=== PATIENT | female | born 1995 | race Caucasian/White ===

== ENCOUNTER 2024-06-24 12:39 | Emergency (ER) | payer BC, MEDICAID ==
[~2024-06-24] VITALS: Ht 167.6 cm; Wt 102.7 kg
[~2024-06-24 12:39] MED LIST: ONDA-243 PO
[2024-06-24 13:02] LABS: BILIRUBIN,URINE NEGATIVE (Neg); CLARITY,URINE CLOUDY (Clear); COLOR,URINE YELLOW (Yellow); GLUCOSE, URINE NEGATIVE (Neg); KETONES,URINE NEGATIVE (Neg); LEUKOCYTE ESTERASE ,URINE NEGATIVE (Neg); NITRITES, URINE NEGATIVE (Neg); OCCULT BLOOD,URINE NEGATIVE (Neg); PH,URINE 7.5 (4.8-8.0); PROTEIN,URINE NEGATIVE (Neg); URINE HCG NEGATIVE (NEG); UROBILINOGEN,URINE 0.2 E.U/dL (0.2-1.0)
[2024-06-24 13:10] LABS: UA COLLECTION TYPE CLN CATCH MIDSTREAM
[2024-06-24 13:14] LABS: RBC,URINE NONE SEEN /HPF (0-2); WBC,URINE 0-4 /HPF (0-4)
[2024-06-24 13:15] LABS: BACTERIA,URINE FEW /HPF (Neg); MUCUS STRANDS NONE SEEN /LPF (Neg); SQUAMOUS EPITHELIAL CELL,UR MANY /LPF (FEW)
[2024-06-24 13:19] LABS: BASOPHILS # (AUTO) 0.1 X10'3 (0-0.2); BASOPHILS % (AUTO) 0.7 % (0-1); EOSINOPHILS # (AUTO) 0.2 X10'3 (0-0.9); EOSINOPHILS % (AUTO) 2.2 % (0-6); HEMATOCRIT 43.5 % (35.0-45.0); HEMOGLOBIN 14.7 g/dl (12.0-16.0); LYMPHOCYTES # (AUTO) 1.8 X10'3 (1.1-4.8); LYMPHOCYTES % (AUTO) 24.1 % (21-51); MEAN CORPUSCULAR HEMOGLOBIN 30.3 PG (27.0-31.0); MEAN CORPUSCULAR HGB CONC 33.8 g/dL (33.0-36.5); MEAN CORPUSCULAR VOLUME 89.7 FL (78-98); MEAN PLATELET VOLUME 9.6 FL (7.4-10.4); MONOCYTES # (AUTO) 0.6 X10'3 (0-0.9); MONOCYTES % (AUTO) 7.4 % (2-12); NEUTROPHILS # (AUTO) 4.9 X10'3 (1.8-7.7); NEUTROPHILS % (AUTO) 65.6 % (42-75); PLATELET COUNT 256 X10'3 (140-440); RED BLOOD COUNT 4.85 X10'6 (4.20-5.60); WHITE BLOOD COUNT 7.4 X10'3 (4.5-11.0)
[2024-06-24 13:30] LABS: ALANINE AMINOTRANSFERASE 14 U/L (12-78); ALBUMIN 3.7 G/DL (3.4-5.0); ALBUMIN/GLOBULIN RATIO 0.9 (1.1-1.5); ALKALINE PHOSPHATASE 56 IU/L (46-116); ANION GAP 9 (8-16); ASPARTATE AMINO TRANSFERASE 24 U/L (10-37); BILIRUBIN,TOTAL 0.4 MG/DL (0.1-1.0); BLOOD UREA NITROGEN 9 MG/DL (7-18); CALCIUM 8.9 MG/DL (8.5-10.1); CHLORIDE 105 MMOL/L (99-107); CREATININE 0.75 MG/DL (0.40-0.90); GLUCOSE 87 MG/DL (70-104); LIPASE 43 U/L (16-77); SODIUM 139 MMOL/L (135-145); TOTAL CARBON DIOXIDE 25.5 MMOL/L (24-32); TOTAL PROTEIN 7.6 G/DL (6.4-8.2); eCRCL 105 ML/MIN; eGFR > 90 ML/MIN
[2024-06-24] MEDS: HYDROcodone/acetaminophen 10/325mg tab PO ONE (13:46)
[2024-06-24] MEDS ORDERED: HYDR-3965 PO (14:00)
[2024-06-24 14:03] VITALS: BP 126/68; PULSE 80; RESP 16; TEMP 98.9; O2SAT 99
== END 2024-06-24 14:06 | disposition home or self-care (01) ==
LOC: ER 12:39
DX: N83.202 Unspecified ovarian cyst, left side (principal); N83.201 Unspecified ovarian cyst, right side; F41.9 Anxiety disorder, unspecified; F32.A Depression, unspecified; Z88.2 Allergy status to sulfonamides; Z88.1 Allergy status to other antibiotic agents; Z79.899 Other long term (current) drug therapy
CPT/HCPCS: 36415; 76830; 76856; 80053; 81001; 81025; 83690; 85025; 93976; 99284

== ENCOUNTER 2024-07-13 14:58 | Outpatient (CLI) | payer BC ==
[~2024-07-13 14:58] MED LIST changes: +HYDR-3965 PO
[2024-07-13 15:26] LABS: BASOPHILS # (AUTO) 0.1 X10'3 (0-0.2); BASOPHILS % (AUTO) 0.7 % (0-1); EOSINOPHILS # (AUTO) 0.2 X10'3 (0-0.9); EOSINOPHILS % (AUTO) 2.4 % (0-6); HEMATOCRIT 42.7 % (35.0-45.0); HEMOGLOBIN 14.5 g/dl (12.0-16.0); LYMPHOCYTES # (AUTO) 2.1 X10'3 (1.1-4.8); LYMPHOCYTES % (AUTO) 26.1 % (21-51); MEAN CORPUSCULAR HEMOGLOBIN 30.4 PG (27.0-31.0); MEAN CORPUSCULAR HGB CONC 33.9 g/dL (33.0-36.5); MEAN CORPUSCULAR VOLUME 89.6 FL (78-98); MEAN PLATELET VOLUME 9.3 FL (7.4-10.4); MONOCYTES # (AUTO) 0.5 X10'3 (0-0.9); MONOCYTES % (AUTO) 6.6 % (2-12); NEUTROPHILS # (AUTO) 5.2 X10'3 (1.8-7.7); NEUTROPHILS % (AUTO) 64.2 % (42-75); PLATELET COUNT 279 X10'3 (140-440); RED BLOOD COUNT 4.76 X10'6 (4.20-5.60); RED CELL DISTRIBUTION WIDTH 12.7 % (11.5-14.5); WHITE BLOOD COUNT 8.2 X10'3 (4.5-11.0)
[2024-07-13 15:41] LABS: ALANINE AMINOTRANSFERASE 20 U/L (12-78); ALBUMIN 4.1 G/DL (3.4-5.0); ALKALINE PHOSPHATASE 64 IU/L (46-116); ANION GAP 7 (8-16); ASPARTATE AMINO TRANSFERASE 12 U/L (10-37); BILIRUBIN,TOTAL 0.4 MG/DL (0.1-1.0); BLOOD UREA NITROGEN 9 MG/DL (7-18); BUN/CREATININE RATIO 11.1 (10.0-20.0); CALCIUM 9.2 MG/DL (8.5-10.1); CHLORIDE 105 MMOL/L (99-107); CREATININE 0.81 MG/DL (0.40-0.90); GLUCOSE 69 MG/DL (70-104); POTASSIUM 3.7 MMOL/L (3.5-5.1); SODIUM 141 MMOL/L (135-145); TOTAL CARBON DIOXIDE 29.4 MMOL/L (24-32); TOTAL PROTEIN 8.2 G/DL (6.4-8.2); eGFR 85 ML/MIN
[2024-07-13 15:51] LABS: CHOLESTEROL 178 MG/DL (0-200); FREE T4 (FREE THYROXINE) 0.95 NG/DL (0.73-1.40); HDL CHOLESTEROL 60 MG/DL (35-60); LDL CHOLESTEROL 97 MG/DL (50-100); THYROID STIMULATING HORMONE 1.56 ulU/ml (0.34-4.50); TRIGLYCERIDES 121 MG/DL (20-135)
[2024-07-13 16:03] LABS: HEMOGLOBIN A1C 4.8 % (4.5-6.2)
== END 2024-07-13 23:59 | disposition home or self-care (01) ==
LOC: LAB 14:58
PROVIDERS: ATTEND Nurse Practitioner
DX: Z13.220 Encounter for screening for lipoid disorders (principal); Z13.29 Encounter for screening for other suspected endocrine disorder; R73.9 Hyperglycemia, unspecified; E66.9 Obesity, unspecified; E55.9 Vitamin D deficiency, unspecified
CPT/HCPCS: 36415; 80053; 80061; 82306; 83036; 84439; 84443; 85025

== ENCOUNTER 2024-07-29 02:36 | Emergency (ER) | payer BC ==
[~2024-07-29] VITALS: Ht 167.6 cm; Wt 104.5 kg
[~2024-07-29 02:36] MED LIST changes: -HYDR-3965 PO
[2024-07-29 02:40] VITALS: BP 127/84; PULSE 85; RESP 16; TEMP 98; O2SAT 97
[2024-07-29 03:01] LABS: BILIRUBIN,URINE NEGATIVE (Neg); CLARITY,URINE CLEAR (Clear); COLOR,URINE YELLOW (Yellow); GLUCOSE, URINE NEGATIVE (Neg); KETONES,URINE NEGATIVE (Neg); LEUKOCYTE ESTERASE ,URINE NEGATIVE (Neg); NITRITES, URINE NEGATIVE (Neg); OCCULT BLOOD,URINE NEGATIVE (Neg); PROTEIN,URINE NEGATIVE (Neg); UROBILINOGEN,URINE 0.2 E.U/dL (0.2-1.0)
[2024-07-29 03:04] LABS: URINE HCG NEGATIVE (NEG)
[2024-07-29 03:05] LABS: UA COLLECTION TYPE CLN CATCH MIDSTREAM
== END 2024-07-29 04:31 | disposition home or self-care (01) ==
LOC: EEVIPCON 02:37 → ER 02:37
DX: M54.59 Other low back pain (principal); R42 Dizziness and giddiness; R10.84 Generalized abdominal pain; F41.9 Anxiety disorder, unspecified; F32.A Depression, unspecified; Z88.2 Allergy status to sulfonamides; Z88.1 Allergy status to other antibiotic agents
CPT/HCPCS: 81003; 81025; 99283

== ENCOUNTER 2024-10-01 14:16 | Emergency (ER) | payer BC ==
[~2024-10-01] VITALS: Ht 167.6 cm; Wt 105.2 kg
[2024-10-01 14:19] VITALS: BP 130/93; PULSE 80; RESP 18; O2SAT 100
[2024-10-01 14:35] VITALS: TEMP 97.4
== END 2024-10-01 14:36 | disposition home or self-care (01) ==
LOC: ER 14:17
DX: B34.9 Viral infection, unspecified (principal); F32.A Depression, unspecified; F41.9 Anxiety disorder, unspecified; Z88.2 Allergy status to sulfonamides; Z88.1 Allergy status to other antibiotic agents
CPT/HCPCS: 99282

== ENCOUNTER 2024-12-02 12:42 | Emergency (ER) | payer BC ==
[~2024-12-02] VITALS: Ht 167.6 cm; Wt 103.5 kg
[2024-12-02 12:58] VITALS: BP 118/83; PULSE 78; RESP 16; O2SAT 98
[2024-12-02] MEDS ORDERED: OFLO5DRO RIGHTEYE (13:44)
[2024-12-02 14:05] VITALS: TEMP 97.7
== END 2024-12-02 14:06 | disposition home or self-care (01) ==
LOC: ER 12:42
DX: H10.9 Unspecified conjunctivitis (principal); Z88.2 Allergy status to sulfonamides; Z88.8 Allergy status to other drugs, medicaments and biological substances; Z79.2 Long term (current) use of antibiotics
CPT/HCPCS: 99283

== ENCOUNTER 2025-04-03 13:36 | Emergency (ER) | payer BC ==
[~2025-04-03] VITALS: Ht 167.6 cm; Wt 102.3 kg
[2025-04-03 13:39] VITALS: BP 142/83; PULSE 109; TEMP 98.4; O2SAT 99
--- NOTE | 2025-04-03 14:24 | Physician Documentation ---
History of Present Illness ~ Chief Complaint: Back Pain Stated Complaint: BACK PAIN Time Seen by MD: 13:51 HPI Patient is seen today with complaints of lower back pain after she was swimming and sliding down a rock slide and came into the water and hit her lower back on a rock. Patient states this occurred couple of days ago and she was able to hike out after that occurred but then yesterday and today or low back pain has been significant and states he is having a hard time with getting around the house. Patient has no other concern or complaint at this time. She denies any saddle anesthesia or changes in bowel or bladder habits or nausea, vomiting, diarrhea. Medication Reconciliation Allergies: Coded Allergies: phenazopyridine (Unverified Allergy, Unknown, 06/20/23) sulfamethoxazole (Unverified Allergy, Unknown, 06/20/23) trimethoprim (Unverified Allergy, Unknown, 06/20/23) Scheduled PRN ONDANSETRON ODT 4mg tablet (Ondansetron Odt), 1 TABLET PO Q6H PRN for nausea vom Past Medical History Past Medical History: No Pertinent History, Anxiety, Depression Review of Systems Constitutional: Denies: chills, fever, weakness Eyes: Denies: pain, blurred vision ENT: Denies: ear pain, nose pain, throat pain, mouth pain Respiratory: Denies: cough, shortness of breath Cardiovascular: Denies: chest pain, palpitations Gastrointestinal: Denies: abdominal pain, nausea, vomiting Genitourinary: Denies: burning, dysuria Female Genitalia: Denies: vaginal discharge, pelvic pain Neurological: Denies: headache, dizziness Musculoskeletal: Denies: pain, swelling Integumentary: Denies: rash, lesions Allergic/Immunologic: Denies: hives, itching Hematologic/Lymphatic: Denies: no symptoms reported Psychiatric: Denies: depression, anxiety Physical Exam Physical Exam Vital Signs: Temperature: 98.4, Source: Temporal, Heart Rate: 109, Respiratory Rate: 18, BP: 142/83, Pulse Oximetry: 99, Weight: 102.270 Oxygen Flow Rate: 0 Physical Exam General: Awake and Alert, no acute distress. HEENT: Conjunctiva pink, Sclera clear, Mucus Membranes moist. Neck: Supple without masses and tenderness. Resp: Unlabored. Lungs clear to auscultation bilaterally. Heart: Regular Rate and rhythm, normal S1 and S2 without murmur, rub or gallop. Musculoskeletal: Patient on exam has significant decreased range of motion of the lumbar spine in all planes of motion. Patient has tenderness to palpation of the lower lumbar area worse on the right side around the SI joint. Patient has no obvious bruising or sign of swelling or ecchymosis. Patient is neurovascularly intact distally. Motor function intact distally. And strength intact. Extremities: No cyanosis,clubbing or edema. Skin: Warm and Dry. Progress Results/Orders Results/Orders Orders - KIM CHAVEZ Ketorolac Trometh 30mg/Ml Vial (Toradol (04/03/25 14:21) Vital Signs 04/03/25 13:39 Temp 98.4 Pulse 109 Resp 18 B/P (MAP) 142/83 Pulse Ox 99 O2 Flow Rate 0 Medical Decision Making Findings Patient is seen today with complaints of lower back pain after she was swimming and sliding down a rock slide and came into the water and hit her lower back on a rock. Patient states this occurred couple of days ago and she was able to hike out after that occurred but then yesterday and today or low back pain has been significant and states he is having a hard time with getting around the house. Patient has no other concern or complaint at this time. She denies any saddle anesthesia or changes in bowel or bladder habits or nausea, vomiting, diarrhea. Patient was given dose of Toradol 30 mg IM in the ED today. Patient will be given prescription for meloxicam 15 mg one tab by mouth once a day to be taken with food and do not take with any other NSAID or ibuprofen or naproxen. Prescription of [place] 5/325 mg, one tab by mouth twice a day sent to patient's pharmacy to be taken as directed. Return to ED with any worsening, concerning or changing symptoms. Patient will follow up with primary care in 2-5 days if no better as needed sooner for further eval and treatment and possible referral to physical therapy. Departure Disposition: HOME / SELF CARE / HOMELESS Impression: Primary Impression: Lumbar sprain Qualified Codes: S33.5XXA - Sprain of ligaments of lumbar spine, initial encounter Additional Impression: Contusion, back Qualified Codes: S20.221A - Contusion of right back wall of thorax, initial encounter Condition: Stable Discharge Instructions: Acute Back Pain, Adult Additional Instructions: Patient was given dose of Toradol 30 mg IM in the ED today. Patient will be given prescription for meloxicam 15 mg one tab by mouth once a day to be taken with food and do not take with any other NSAID or ibuprofen or naproxen. Prescription of [place]os[place] 5/325 mg, one tab by mouth twice a day sent to patient's pharmacy to be taken as directed. Return to ED with any worsening, concerning or changing symptoms. Patient will follow up with primary care in 2-5 days if no better as needed sooner for further eval and treatment and possible referral to physical therapy. Referrals: NO PRIMARY CARE PROVIDER (PCP) Prescriptions Hydrocodone Bit/Acetaminophen 5/325 MG (Theodosia 5/325 MG) 5 Mg/325 Mg Tablet 1 TAB PO Q12H PRN PRN for pain for 5 Days, #10 TAB Prov: KIM CHAVEZ 04/03/25 Meloxicam (Meloxicam) 15 Mg Tablet 1 TAB PO DAILY for 30 Days, #30 TAB 0 Refills Prov: KIM CHAVEZ 04/03/25 Signature Scribe Signature: No scribe Attestation: No scribe KIM CHAVEZ Apr 03, 2025 14:24
[2025-04-03] MEDS ORDERED: HYDR-3965 PO (14:33)
[2025-04-03] MEDS ORDERED: MELO-102 PO (14:33)
[2025-04-03 14:47] VITALS: RESP 16
[2025-04-03] MEDS: ketorolac trometh 30MG/ML vial 30 MG/ML VIAL IM STA (14:47)
== END 2025-04-03 14:55 | disposition home or self-care (01) ==
LOC: ER 13:37
DX: S33.5XXA Sprain of ligaments of lumbar spine, initial encounter (principal); S20.221A Contusion of right back wall of thorax, initial encounter; Z88.2 Allergy status to sulfonamides; Z88.8 Allergy status to other drugs, medicaments and biological substances; W22.09XA Striking against other stationary object, initial encounter; Y93.89 Activity, other specified; Y92.89 Other specified places as the place of occurrence of the external cause; Y99.8 Other external cause status
CPT/HCPCS: 96372; 99283; J1885

== ENCOUNTER 2025-04-05 21:05 | Emergency (ER) | payer BC ==
[~2025-04-05] VITALS: Ht 167.6 cm; Wt 89.5 kg
[~2025-04-05 21:05] MED LIST changes: +HYDR-3965 PO; +MELO-102 PO
[2025-04-05 21:13] VITALS: BP 136/83; PULSE 73; TEMP 96.8; O2SAT 98
--- NOTE | 2025-04-05 21:54 | Physician Documentation ---
History of Present Illness ~ Chief Complaint: Back Pain Stated Complaint: BACK PAIN Time Seen by MD: 21:51 HPI 29-year-old female presents to the ED for ongoing back pain. She was recently seen here and received [place] and Toradol after injuring her back while sleeping on the ground during the camping trip. Denies any red flag symptoms however she says that her back pain is keeping her up at night and she is requesting further management Day of Onset: Apr 05, 2025 Medication Reconciliation Allergies: Coded Allergies: phenazopyridine (Unverified Allergy, Unknown, 04/05/25) sulfamethoxazole (Unverified Allergy, Unknown, 04/05/25) trimethoprim (Unverified Allergy, Unknown, 04/05/25) Scheduled Meloxicam (Meloxicam), 1 TAB PO DAILY Scheduled PRN Hydrocodone Bit/Acetaminophen 5/325 MG ([place] 5/325 MG), 1 TAB PO Q12H PRN PRN for pain ONDANSETRON ODT 4mg tablet (Ondansetron Odt), 1 TABLET PO Q6H PRN for nausea vom Past Medical History Past Medical History: No Pertinent History, Anxiety, Depression Review of Systems All Other Systems at this time: Reviewed and Negative ROS As stated above in the HPI, otherwise all systems are reviewed and negative. Physical Exam Physical Exam Vital Signs: Temperature: 96.8, Source: Temporal, Heart Rate: 73, Respiratory Rate: 15, BP: 136/83, Pulse Oximetry: 98, Weight: 89.500 Progress Results/Orders Results/Orders Completed Orders - ASAD QURESHI NP Diazepam Tablet (Valium Tablet) (04/05/25 21:55) Cyclobenzaprine Tablet (Flexeril Tablet) (04/05/25 21:55) Morphine 2mg/Ml Inj. (Morphine Inj.) (04/05/25 21:55) Medications Received in ER Medications (Trade) Dose Ordered Sig/Iraida Route PRN Reason Start Time Stop Time Status Last Admin Dose Admin (Valium tablet) 10 mg ONCE ONCE PO 04/05/25 21:55 04/05/25 21:56 DC 04/05/25 21:59 10 MG (Flexeril tablet) 10 mg ONCE ONCE PO 04/05/25 21:55 04/05/25 21:56 DC 04/05/25 21:59 10 MG (morphine inj.) 2 mg ONCE ONCE IV 04/05/25 21:55 04/05/25 21:56 DC 04/05/25 22:04 2 MG Vital Signs 04/05/25 04/05/25 21:13 22:04 Temp 96.8 Pulse 73 Resp 15 18 B/P (MAP) 136/83 Pulse Ox 98 Departure Disposition: HOME / SELF CARE / HOMELESS Impression: Primary Impression: Low back pain Condition: Stable Discharge Instructions: Lumbosacral Strain Referrals: NO PRIMARY CARE PROVIDER (PCP) Signature Scribe Signature: y Attestation: Scribed for Asad Qureshi Waiter/Waitress Dining Car by Asad Qureshi - CAITLIN . 04/05/25 23:03 ASAD QURESHI GRUBBER Apr 05, 2025 21:54
[2025-04-05 23:10] VITALS: RESP 19
== END 2025-04-05 23:12 | disposition home or self-care (01) ==
LOC: ER 21:05
DX: M54.50 Low back pain, unspecified (principal); Z88.2 Allergy status to sulfonamides; Z88.8 Allergy status to other drugs, medicaments and biological substances; Z79.899 Other long term (current) drug therapy
CPT/HCPCS: 96374; 99283; J2270

== ENCOUNTER 2025-05-13 11:38 | Emergency (ER) | payer BC ==
[~2025-05-13] VITALS: Ht 167.6 cm; Wt 104.9 kg
[~2025-05-13 11:38] MED LIST changes: -HYDR-3965 PO
[2025-05-13 11:51] VITALS: BP 135/74; PULSE 82; RESP 16; TEMP 98.6; O2SAT 96
--- NOTE | 2025-05-13 12:39 | RADIOLOGY REPORT ---
Indication: ANKLE PAIN Technique: DI ANKLE, COMPLETE(3VW MIN)ANKLECPLT Comparison: None FINDINGS/IMPRESSION: No radiographic evidence for acute fracture or dislocation. Achilles enthesopathy. Mild diffuse ankl e soft tissue edema.
--- NOTE | 2025-05-13 13:09 | Physician Documentation ---
History of Present Illness ~ Chief Complaint: Ankle pain Stated Complaint: R ANKLE PAIN Time Seen by MD: 12:03 OK to notify your PCP?: Yes Source: patient Mode of Arrival: POV Exam Limitations: no limitations HPI 29-year-old female presents with right ankle pain after she was swimming and rolled her ankle. She has not had increased swelling to the lateral portion of her right ankle ever since, worse today. Last dose of ibuprofen was last night. Is ambulatory. Tetanus witin 5 years: Yes Medication Reconciliation Allergies: Coded Allergies: phenazopyridine (Unverified Allergy, Unknown, 05/13/25) sulfamethoxazole (Unverified Allergy, Unknown, 05/13/25) trimethoprim (Unverified Allergy, Unknown, 05/13/25) Scheduled Meloxicam (Meloxicam), 1 TAB PO DAILY Scheduled PRN ONDANSETRON ODT 4mg tablet (Ondansetron Odt), 1 TABLET PO Q6H PRN for nausea vom Past Medical History Past Medical History: No Pertinent History, Anxiety, Depression Review of Systems All Other Systems at this time: Reviewed and Negative Physical Exam Vital Signs: RN Vital Signs have been reviewed: Yes, Temperature: 98.6, Source: Oral, Heart Rate: 82, Respiratory Rate: 16, BP: 135/74, Pulse Oximetry: 96, Weight: 104.900 Oxygen Flow Rate: 0 Pulse Oximetry Reflects: adequate oxygenation Physical Exam General: Alert, no distress. HEENT: No injection, moist mucous membranes. Neck: Full range of motion. Respiratory: No respiratory distress, equal chest rise and fall. Chest: No accessory muscle use. Cardiovascular: Regular rate and rhythm. Gastrointestinal: Nondistended. Extremities: Decreased range motion of right ankle. Lateral edema and tenderness to palpation of right ankle, CSM, good pulses, good sensation. Neurologic: Oriented x4. Psychiatric: Normal mood and affect. Skin: Normal color, warm and dry. Progress Results/Orders Reviewed/noted all lab results: Yes Results/Orders Orders - DOLORES HINOJOSA Ortho Orders (05/13/25 ) Vital Signs 05/13/25 11:51 Temp 98.6 Pulse 82 Resp 16 B/P (MAP) 135/74 Pulse Ox 96 O2 Flow Rate 0 EKG/XRAY/CT/US/VASC/MRI Bone/Soft Tissue X-Ray (Ext.) : Additional Comment Right ankle X-ray as interpreted by me; no joint effusion, no acute fracture, mild soft tissue swelling, no dislocation, or foreign body. Medical Decision Making Findings She is experiencing some right ankle pain and swelling into her foot which st arted yesterday. Physical exam reveals some edema and tenderness of right ankle. Offered pain medication like Tylenol or ibuprofen, she reports she will take some when she gets home. Her ankle x-ray was negative for acute fracture or dislocation. Provide some extra support for her ankle sprain I ordered a Velcro/lace-up ankle splint or offered her an Donnie wrap instead. We discussed that she should follow up with her primary care provider within the next week return back here for any new or worsening symptoms. We discussed RICE therapy. She agrees to the plan. Departure Disposition: HOME / SELF CARE / HOMELESS Impression: Primary Impression: Sprain of ankle Condition: Stable Discharge Instructions: Ankle Sprain Additional Instructions: Please continue to use Tylenol and/or ibuprofen for pain relief at home. Keep leg elevated, you can alternate ice 20 minutes on 20 minutes off for the 1st 48 hours after injury and then you can switch to alternating ice and heat. Please wear the provided ankle splint for extra support or you can use a Donnie wrap. Referrals: NO PRIMARY CARE PROVIDER (PCP) Education Educated: Patient Educated regarding: diagnosis, treatment, prognosis, need for follow up Additional Comment Medical Screen Exam This patient recieved a medical screening examination. After reviewing the individual's medical complaints with presenting symptoms and performing an ap propriate physical examination, it was determined that no immediate life- threatening emergency medical condition is present. This individual is also not a women having contractions. Signature Scribe Signature: . Attestation: Scribed for Dolores Hinojosa by Dolores Hernandez NP . 05/13/25 17:49 Parts of this note were created using [employer] voice recognition software program. While efforts were made to correct any mistakes made by this voice recognition software program, nonsensical phrases may remain in this note. In addition, there may be errors and syntax, grammar, content and spelling. DOLORES HINOJOSA May 13, 2025 13:09
== END 2025-05-13 13:30 | disposition home or self-care (01) ==
LOC: ER 11:38
DX: S93.491A Sprain of other ligament of right ankle, initial encounter (principal); Z88.8 Allergy status to other drugs, medicaments and biological substances; Z88.2 Allergy status to sulfonamides; Z79.899 Other long term (current) drug therapy; X50.1XXA Overexertion from prolonged static or awkward postures, initial encounter; Y93.89 Activity, other specified; Y92.89 Other specified places as the place of occurrence of the external cause; Y99.8 Other external cause status
CPT/HCPCS: 29515; 73610; 99283; L1930; A6449

== ENCOUNTER 2025-06-14 11:44 | Emergency (ER) | payer BC ==
[~2025-06-14] VITALS: Ht 167.6 cm; Wt 104.5 kg
[2025-06-14 11:55] VITALS: BP 128/81; PULSE 69; TEMP 98.3; O2SAT 95
--- NOTE | 2025-06-14 12:04 | Physician Documentation ---
History of Present Illness ~ Chief Complaint: Chest Pain Stated Complaint: CP Time Seen by MD: 11:54 Mode of Arrival: EMS HPI This is a 29-year-old female who presents to the emergency department reporting that she was preparing to go to an appointment this morning when she developed sudden onset stabbing left chest pain that has worse with a deep breath. She denies any recent chills or fever, but does note that she has had some nausea without vomiting. She has also had cold symptoms for the last two days. Describes this as a slight cough. Denies shortness of breath. Medical history includes anxiety and depression. Denies being on hormone therapy, estrogen. Denies history of blood clot. Took an Ativan when the symptoms began, as she does note a history of panic attacks. Denies any recent increased physical activity or exercise involving upper extremities. Medication Reconciliation Allergies: Coded Allergies: phenazopyridine (Unverified Allergy, Unknown, 05/13/25) sulfamethoxazole (Unverified Allergy, Unknown, 05/13/25) trimethoprim (Unverified Allergy, Unknown, 05/13/25) Scheduled Meloxicam (Meloxicam), 1 TAB PO DAILY Scheduled PRN ONDANSETRON ODT 4mg tablet (Ondansetron Odt), 1 TABLET PO Q6H PRN for nausea vom Past Medical History Past Medical History: No Pertinent History, Anxiety, Depression Review of Systems ROS As stated above in the HPI, otherwise all systems are reviewed and negative. Physical Exam Vital Signs: Temperature: 98.3, Source: Oral, Heart Rate: 69, Respiratory Rate: 18, BP: 128/81, Pulse Oximetry: 95, Weight: 104.550 Physical Exam General: Alert, no apparent distress. HEENT: PERRL, EOMI, no injection, moist mucous membranes. Neck: Full range of motion. Respiratory: Lungs clear, no respiratory distress. Chest: No accessory muscle use. Cardiovascular: Regular rate and rhythm, no murmurs. Gastrointestinal: Soft, nontender, nondistended. Bowels sounds present. Extremities: Normal range of motion, no deformity. Neurologic: Oriented x4. Psychiatric: Normal mood and affect. Skin: Normal color, warm and dry. No edema, no ecchymosis. Progress Results/Orders Results/Orders Orders - HERLINDA CRUZ NP Chest,Single View (06/14/25 12:04) Completed Orders - HERLINDA CRUZ WEIGHER AND CHARGER Hs Troponin I W Calculations (06/14/25 12:04) Chest,Single View (06/14/25 12:04) 15 Lead Ekg (06/14/25 ) Vital Signs 06/14/25 06/14/25 11:55 12:00 Temp 98.3 Pulse 69 Resp 18 18 B/P (MAP) 128/81 Pulse Ox 95 Laboratory Tests Test 06/14/25 11:49 Troponin I High Sensitivity 4 EKG/XRAY/CT/US/VASC/MRI EKG : Additional Comment 1149 EKG interpreted to show RSR rate of 67. No ectopy. No ST segment elevation. QTC 442 ms. Chest X-Ray : Additional Comments [address] [address] DIAGNOSTIC RADIOLOGY Patient: ABDIAZIZ MARIO Medical Record: [id number] 1995, Age: 29 Sex: Female Location: ER Patient Status: [facility] ER Service Date/Time: 06/14/25/ 1204 Ordering Physician: HERLINDA CRUZ NP Exam: CHEST,SINGLE VIEW CHEST RADIOGRAPH Indication: CP Technique: Single frontal view of the chest was obtained Comparison: None FINDINGS: Lines and Tubes: None Lungs: No focal consolidation. Pleura: No effusion. No pneumothorax. Cardiomediastinal contours: Unremarkable Bones: No acute osseous abnormality. IMPRESSION: No acute cardiopulmonary disease. Electronically Signed by:PRITESH MORALES MD Date & Time: 06/14/251245 Dictated by: PRITESH MORALES MD Dictation date and time: 06/14/25 124 Primary Care Provider: NO PRIMARY CARE PROVIDER cc: HERLINDA CRUZ NP ~ Medical Decision Making Differential Dx:Considerations: Include: angina, aortic dissection, chest wall pain, cholelithiasis, CHF, costochondritis, esophageal reflux/spasm, gastritis, herpes zoster, myocardial infarction, pericarditis, pleuritis, pancreatitis, pneumonia, pneumothorax, pulmonary embolus Additional Information Neg trop, normal EKG. Will treat like costochrondritis. Is to return if worse such as with fever. Departure Time of Disposition: 13:17 Disposition: 01 HOME / SELF CARE / HOMELESS Impression: Primary Impression: Chest wall pain Condition: Stable Discharge Instructions: Chest Wall Pain, Costochondritis Additional Instructions: Use Ibuprofen or Naproxen per the [id number] label instructions for the next few days. Ice the sore area of the chest 15 minutes four times a day. Followup with primary care. Return if worse. Referrals: NO PRIMARY CARE PROVIDER (PCP) Education Educated: Patient Educated regarding: diagnosis, treatment, prognosis, need for follow up Signature Scribe Signature: x Attestation: The note accurately reflects work and decisions made by me.Herlinda Hernandez NP 06/14/25 12:05 HERLINDA CRUZ NP Jun 14, 2025 12:04
--- NOTE | 2025-06-14 12:27 | ELECTROCARDIOGRAPH REPORT ---
[facility] Test Date: 2025-06-14 Test Time: 11:49:55 Pat Name: ABDIAZIZ MARIO Department: EMERGENCY ROOM Room: Gender: F Lumber Inspector: ORLIN : 1995 Requested By: CATE CRUZ Order Number: [id number] Reading MD: Measurements Intervals [place] Rate: 67 P: 36 RI: 156 QRS: 49 QRSD: 100 T: 35 QT: 418 QTc: 442 Interpretive Statements Sinus rhythm RSR' in V1 or V2, probably normal variant Please click the below link to view image of tracing.
--- NOTE | 2025-06-14 12:48 | RADIOLOGY REPORT ---
CHEST RADIOGRAPH Indication: CP Technique: Single frontal view of the chest was obtained Comparison: None FINDINGS: Lines and Tubes: None Lungs: No focal consolidation. Pleura: No effusion. No pneumothorax. Cardiomediastinal contours: Unremarkable Bones: No acute osseous abnormality. IMPRESSION: No acute cardiopulmonary disease.
[2025-06-14 13:50] VITALS: RESP 18
[2025-06-14] MEDS: ketorolac trometh 30MG/ML vial 30 MG/ML VIAL IM ONE (13:50)
== END 2025-06-14 14:09 | disposition home or self-care (01) ==
LOC: ER 11:44
DX: R07.89 Other chest pain (principal); F41.9 Anxiety disorder, unspecified; Z88.1 Allergy status to other antibiotic agents; Z88.2 Allergy status to sulfonamides; Z88.8 Allergy status to other drugs, medicaments and biological substances
CPT/HCPCS: 36415; 71045; 84484; 93005; 96372; 99285; J1885